=== PATIENT | male | born 1985 | race Caucasian/White ===

== ENCOUNTER 2018-09-30 06:15 | Emergency (ER) | payer MEDICAID ==
[~2018-09-30] VITALS: Ht 188 cm; Wt 86.2 kg
[2018-09-30 06:20] VITALS: BP_SYST 100
--- NOTE | 2018-09-30 06:20 | NUR ---
Patient to ER H1 to gown for evaluation. Side rails up.
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
--- NOTE | 2018-09-30 06:25 | NUR ---
REGINALDO Muller at bedside examining patient.
[2018-09-30 06:30] VITALS: BP_SYST 100
--- NOTE | 2018-09-30 06:30 | NUR ---
Patient given written and verbal discharge instructions and verbalizes understanding. ER MD discussed with patient the results and treatment provided. Patient in stable condition. ID arm band removed. No Rx given. Patient educated on pain management and to follow up with PMD. Pain Scale 0. Opportunity for questions provided and answered. Medication side effect fact sheet provided. Accompanied by [facility].
== END 2018-09-30 06:30 ==
LOC: SED 06:15
DX: Z04.1 Encounter for examination and observation following transport accident (principal); V43.52XA Car driver injured in collision with other type car in traffic accident, initial encounter; Y93.89 Activity, other specified; Y92.411 Interstate highway as the place of occurrence of the external cause; Y99.8 Other external cause status
CPT/HCPCS: 99283